=== PATIENT | male | born 1950 | race Caucasian/White ===

== ENCOUNTER 2022-12-27 08:15 | Emergency (ER) | payer MEDICARE, OTHER, SELFPAY ==
[2022-12-27 08:18] VITALS: BP 190/66; PULSE 50; RESP 18; TEMP 36.7; O2SAT 98
--- NOTE | 2022-12-27 08:43 | ED.GENADUL_ITS ---
Discharge Plan Disposition Patient Disposition: Home Discharge Details Clinical Impression: Avulsion of toenail Primary Care Provider: None,None ED Provider: Sree Kate Discharge Instructions Instructions: Nail Avulsion (ED) Additional Instructions: At this time I do feel it would be best to leave nail in place. You may perform warm water soaks twice daily and keep toe clean and dry. Please wear postop shoe as this will help with healing. Monitor for signs of infection and return immediately if these occur. It was noted that you had elevated blood pressure which I feel is due to you not taking your medication. Please resume your medication this morning and you may also resume taking your blood thinner. Referrals: Primary Care Provider [Outside] (As needed for reassessment) Discharge Data Discharge Date/Time-TO BE ENTERED AT DEPARTURE: 12/27/22 09:31 Medical Decision Making Patient presenting to the emergency department for chief complaint of right great toe injury. Patient reports last night he stubbed his toe on the ground and dislodged his toenail. 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 He reports that bleeding has stopped but wanted evaluation. Physical exam shows a partial nail avulsion of the right great toenail. Toenail is intact at base and dried blood is present. Exam is otherwise unremarkable. I do not feel that risk of nail removal outweighs benefit given that patient is anticoagulated and bleeding has stopped along with the injury being greater than 12 hours ago. Discussed acute wound care with patient along with monitoring symptoms and return precautions. senior staff consultant was able to appropriately dressed wound and did soak foot in clean wound. After discussion of diagnosis and plan of care patient has no further needs, questions, or concerns and states clear understanding to return to the emergency department for any worsening symptoms. This documentation was generated using [employer] system, please disregard any oddities of phrase or misspellings. HPI General Mode of arrival: ambulatory . Date/Time Provider Initiated Documentation: 12/27/22 08:16 . Limitations to Documentation: no limitations . Information obtained by: patient and RN notes reviewed . History of Present Illness 72 year old M presents to the emergency department with the chief complaint of Right great toe injury, Patient notes no other symptoms.. General Stated Complaint: GenMedical MARY: 4 Review of Systems Cardiovascular Cardiovascular: Denies syncope Musculoskeletal Musculoskeletal: Reports as per HPI Integumentary/Breasts Skin/Breast: Reports as per HPI and Denies unusual bruising Neurologic Neurologic: Denies syncope and Denies paresthesias PFSH All Active Problems Avulsion of toenail (Acute) Social History Smoking/Tobacco Use Status: Former Tobacco Use Smoking risk assessment performed?: Yes Alcohol Intake: current Substance use type: does not use Housing: house Do you feel safe at home: Yes Do you feel safe in your relationship?: Yes Additional Social history: lives in [place] for summer in [employer] [facility]. 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 [place] Exam Const General: cooperative, no acute distress and not ill appearing Orientation: alert, awake and oriented x3 HENMT Mouth: moist mucous membranes Resp Effort & Inspection: normal respiratory effort, able to speak in complete sentences and no respiratory distress Cardio Rate: regular rate Rhythm: regular rhythm Pulses: normal peripheral pulses Skin General skin exam: no rashes or lesions noted Neuro General: patient alert, patient awake, patient oriented x3, moves all extremities and no focal motor deficits Sensory Exam: no sensory deficits noted Extrem General: normal exam except as noted Right lower extremity: foot Details: abnormal to inspection (Partial nail avulsion great toe, with dried blood) Course Vital Signs Vital signs: Vital Signs Temperature 36.7 C 12/27/22 08:18 Pulse 50 L 12/27/22 08:18 Respiratory Rate 18 12/27/22 08:18 Blood Pressure 190/66 H 12/27/22 08:18 Pulse Oximetry 98 12/27/22 08:18 Temperature 36.7 C 12/27/22 08:18 Temperature Source Tympanic 12/27/22 08:18 Pulse 50 L 12/27/22 08:18 Respiratory Rate 18 12/27/22 08:18 Blood Pressure 190/66 H 12/27/22 08:18 Pulse Oximetry 98 12/27/22 08:18
--- NOTE | 2022-12-27 08:48 | NUR.NOTE ---
Nursing Note: patient reports hitting right toe on cabinet, toe nail still connected dried blood around nail with 1/2 nail raised.
--- NOTE | 2022-12-27 09:30 | NUR.NOTE ---
Nursing Note: right foot soaked in warm water, toe gently cleaned with gauze, wrapped and radha taped to first toe. Post-op shoe applied. D/C paper work given patient verbalized he had no further questions for the provider prior to DC
== END 2022-12-27 09:31 | disposition home or self-care (01) ==
PROVIDERS: Emergency Provider Nurse Practitioner Family
DX: S91.201A Unspecified open wound of right great toe with damage to nail, initial encounter (principal); W22.8XXA Striking against or struck by other objects, initial encounter; Y93.89 Activity, other specified; Y92.89 Other specified places as the place of occurrence of the external cause; Y99.9 Unspecified external cause status
CPT/HCPCS: 99282